=== PATIENT | female | born 1970 | race Caucasian/White ===

== ENCOUNTER → 2017-04-03 | Outpatient (CLI) | payer OTHER ==
[~2017-04-03] MED LIST: DIAZEPAM10 M1 PO
--- NOTE | 2017-04-09 08:47 | RADIOLOGY REPORT PS360 ---
DIG MAMM-SCREEN SUGEY W/CAD CAD Screening ORDERING PHYSICIAN : Adonay Rosado MD PATIENT AGE: 47 years GENDER: Female COMPARISON:.: September 2014Bilateral mammogram Additional views bilateral October 2014 INDICATION: Routine screening . Taking BCP. No new complaints. Benign cyst removed from left breast 30 years ago.. Family history. Noncontributory TECHNIQUE: Standard CC and MLO images were obtained. R2 CAD reviewed. Additional axillary cc view both breast included FINDINGS: Moderate dense breast with scattered fibroglandular elements bilateral. Mammography of somewhat decreased sensitivity breast of scattered dense character. Overall Similar parenchymal pattern with mild asymmetry. No new dominant mass nor suspicious calcifications. No architectural distortion RIGHT BREAST: Stable of dense pattern with no significant new findings. Area of relative focal Density superior right breast MLO view was further evaluated with spot views in October 2014; & appears unchanged on today's MLO view & seems to dissipate on the CC and axillary cc views. Follow-up in one year the adequate LEFT BREAST: No significant new findings. But would encourage follow-up in not over one year IMPRESSION: ...... No significant new findings. Follow-up one year recommended Moderately dense breast pattern does somewhat decreases sensitivity of mammography BI-RADS CATEGORY: 2_Benign RECOMMENDED FOLLOWUP: 12M 12 MONTH FOLLOW-UP (A letter has been sent to the patient regarding results of the study.)
== END ==
LOC: RAD 10:00
DX: Z12.31 Encounter for screening mammogram for malignant neoplasm of breast (principal)
CPT/HCPCS: G0202